=== PATIENT | male | born 1975 | race Caucasian/White ===

== ENCOUNTER 2016-09-05 14:22 | Emergency (ER) | payer OTHER | END 2016-09-05 16:44 | disposition home or self-care (01) | LOC: ER1 14:22 | DX: S86.812A Strain of other muscle(s) and tendon(s) at lower leg level, left leg, initial encounter (principal); M70.22 Olecranon bursitis, left elbow; S20.229A Contusion of unspecified back wall of thorax, initial encounter; S80.812A Abrasion, left lower leg, initial encounter; S80.811A Abrasion, right lower leg, initial encounter; X58.XXXA Exposure to other specified factors, initial encounter | CPT/HCPCS: 70450; 72040; 72072; 73080; 73564; 73590; 99283 ==